=== PATIENT | female | born 1995 | race Caucasian/White ===

== ENCOUNTER 2017-02-16 12:17 | Emergency (ER) | payer SELFPAY ==
[~2017-02-16] VITALS: Ht 162.6 cm; Wt 59.0 kg
[2017-02-16] MEDS ORDERED: IV NORMAL SALINE 1000ML BAG 1,000 ML IV SCH (12:43)
[2017-02-16] MEDS ORDERED: MORPHINE SULFATE 2 MG/ML DISP.SYRIN. IV/SQ PRN (12:45)
[2017-02-16] MEDS ORDERED: ONDANSETRON PF 4 MG/2 ML VIAL. IV ONE (12:45)
--- NOTE | 2017-02-16 12:47 | PHYS DOC ---
Adult General Chief Complaint Chief Complaint: ABDOMINAL PAIN HPI HPI Patient is a 21 year old female who presents with hematuria and lower abdominal pain. She states it started in the middle night when she started noticing left lower pelvic pain and now she complains of right lower pelvic pain. She states she tries to urinate eventually sees blood. She states she could be on her period. She states her periods are very irregular. She is a . She denies any nausea vomiting or constipation or diarrhea. Review of Systems Review of Systems Constitutional: Denies fever or chills [] Eyes: Denies change in visual acuity, redness, or eye pain [] HENT: Denies nasal congestion or sore throat [] Respiratory: Denies cough or shortness of breath [] Cardiovascular: No additional information not addressed in HPI [] GI: Positive for abdominal pain, nausea, vomiting, bloody stools or diarrhea [] : Denies dysuria, positive for hematuria [] Musculoskeletal: Denies back pain or joint pain [] Integument: Denies rash or skin lesions [] Neurologic: Denies headache, focal weakness or sensory changes [] Endocrine: Denies polyuria or polydipsia [] All other systems were reviewed and found to be within normal limits, except as documented in this note. Current Medications Current Medications Current Medications Medications (Trade) Dose Ordered Sig/Lukas Start Time Stop Time Status Last Admin Dose Admin Morphine Sulfate 2 mg PRN Q15MIN PRN 02/16/17 12:45 02/17/17 12:44 02/16/17 13:16 2 MG Ondansetron HCl (Zofran) 4 mg 1X ONCE 02/16/17 12:45 02/16/17 13:03 DC 02/16/17 13:14 4 MG Sodium Chloride 1,000 ml @ 1,000 mls/hr Q1H 02/16/17 12:43 02/16/17 13:42 DC 02/16/17 13:13 1,000 MLS/HR Allergies Allergies Allergies Coded Allergies Type Severity Reaction Last Updated Verified No Known Drug Allergies 02/16/17 No Physical Exam Physical Exam Constitutional: Well developed, well nourished, no acute distress, non-toxic appearance. [] HENT: Normocephalic, atraumatic, bilateral external ears normal, oropharynx moist, no oral exudates, nose normal. [] Eyes: PERRLA, EOMI, conjunctiva normal, no discharge. [] Neck: Normal range of motion, no tenderness, supple, no stridor. [] Cardiovascular:Heart rate regular rhythm, no murmur [] Lungs & Thorax: Bilateral breath sounds clear to auscultation [] Abdomen genital exam: Bowel sounds normal, soft, no tenderness, no masses, no pulsatile masses, normal external genitalia, no cervical motion tenderness, minimal blood in the vault. Wrapper Sizer present during exam Skin: Warm, dry, no erythema, no rash. [] Back: No tenderness, no CVA tenderness. [] Extremities: No tenderness, no cyanosis, no clubbing, ROM intact, no edema. [] Neurologic: Alert and oriented X 3, normal motor function, normal sensory function, no focal deficits noted. [] Psychologic: Affect normal, judgement normal, mood normal. [] Current Patient Data Vital Signs Vital Signs Date Time Temp Pulse Resp B/P (MAP) Pulse Ox O2 Delivery O2 Flow Rate FiO2 02/16/17 13:46 61 18 128/82 (97) 99 Room Air 02/16/17 12:46 98.2 98.2 Lab Values Laboratory Tests Test 02/16/17 12:40 02/16/17 13:20 02/16/17 14:25 Urine Collection Type Unknown U cath Urine Color Red Yellow Urine Clarity Cloudy Clear Urine pH 6.0 6.5 Urine Specific [place] 1.015 1.010 Urine Protein 100 mg/dL (NEG-TRACE) Negative mg/dL (NEG-TRACE) Urine Glucose (UA) Negative mg/dL (NEG) Negative mg/dL (NEG) Urine Ketones (Stick) 15 mg/dL (NEG) Negative mg/dL (NEG) Urine Blood Large (NEG) Small (NEG) Urine Nitrite Negative (NEG) Negative (NEG) Urine Bilirubin Moderate (NEG) Negative (NEG) Urine Urobilinogen Dipstick 1.0 mg/dL (0.2 mg/dL) 1.0 mg/dL (0.2 mg/dL) Urine Leukocyte Esterase Moderate (NEG) Negative (NEG) Urine RBC Tntc /HPF (0-2) 0 /HPF (0-2) Urine WBC 20-40 /HPF (0-4) 0 /HPF (0-4) Urine Squamous Epithelial Cells Mod /LPF Few /LPF Urine Bacteria Many /HPF (0-FEW) 0 /HPF (0-FEW) Urine Mucus Mod /LPF POC Urine HCG, Qualitative Hcg negative (Negative) White Blood Count 10.2 x10^3/uL (4.0-11.0) Red Blood Count 4.64 x10^6/uL (3.50-5.40) Hemoglobin 14.7 g/dL (12.0-15.5) Hematocrit 43.0 % (36.0-47.0) Mean Corpuscular Volume 93 fL (79-100) Mean Corpuscular Hemoglobin 32 pg (25-35) Mean Corpuscular Hemoglobin Concent 34 g/dL (31-37) Red Cell Distribution Width 13.8 % (11.5-14.5) Platelet Count 200 x10^3/uL (140-400) Neutrophils (%) (Auto) 69 % (31-73) Lymphocytes (%) (Auto) 17 % (24-48) L Monocytes (%) (Auto) 9 % (0-9) Eosinophils (%) (Auto) 5 % (0-3) H Basophils (%) (Auto) 1 % (0-3) Neutrophils # (Auto) 7.0 x10^3uL (1.8-7.7) Lymphocytes # (Auto) 1.7 x10^3/uL (1.0-4.8) Monocytes # (Auto) 0.9 x10^3/uL (0.0-1.1) Eosinophils # (Auto) 0.6 x10^3/uL (0.0-0.7) Basophils # (Auto) 0.1 x10^3/uL (0.0-0.2) Prothrombin Time 14.4 SEC (11.7-14.0) H Prothrombin Time INR 1.2 (0.8-1.1) H PTT 32 SEC (24-38) Sodium Level 142 mmol/L (136-145) Potassium Level 4.0 mmol/L (3.5-5.1) Chloride Level 105 mmol/L (98-107) Carbon Dioxide Level 27 mmol/L (21-32) Anion Gap 10 (6-14) Blood Urea Nitrogen 10 mg/dL (7-20) Creatinine 0.7 mg/dL (0.6-1.0) Estimated GFR (Cockcroft-Gault) 105.6 Glucose Level 84 mg/dL (70-99) Calcium Level 8.5 mg/dL (8.5-10.1) Serum Test, Qualitative Negative (NEG) Laboratory Tests 02/16/17 13:20 Laboratory Tests 02/16/17 13:20 Microbiology 02/16/17 Wet Prep - Final, Complete Microbiology 02/16/17 Wet Prep - Final, Complete EKG EKG [] Radiology/Procedures Radiology/Procedures [facility] [address] [place] [address] IMAGING REPORT Signed PATIENT: FRANK RICH ACCOUNT: [id number] : 1995 LOCATION: ER AGE: 21 SEX: F EXAM STATUS: REG ER ORD. PHYSICIAN: FRANK CLEMENTE MD REASON: pelvic pain PROCEDURE: PELVIS COMPLETE Indication: Pelvic pain. The uterus measures 8.1 x 5.2 x 4.4 cm. Endometrium is 2 mm in thickness. No uterine mass is detected. The right ovary measures 3.2 x 2.4 x 1.6 cm and the left ovary measures 3.0 x 2.5 x 1.6 cm. There is blood flow to both ovaries. No adnexal mass or free fluid is seen. Impression: Unremarkable pelvic ultrasound. DICTATED and SIGNED BY: LILLIAM TIJERINA MD DATE: 02/16/17 1416 CC: FRANK CLEMENTE MD; NO PCP ~ RUN DATE: 02/16/17 PAGE 1 RUN TIME: 1436 [facility] [address] [place] [address] Ryne Carey M.D., Stock [employer] PATIENT: FRANK RICH ACCT: [id number] LOC: ER U : [id number] AGE/SX: 21/F ROOM: REG : 02/16/[address]: FRANK CLEMENTE MD : 1995 BED: DIS : STATUS: REG ER TLOC: SPEC #: [id number] MARQUIS: 02/16/17 STATUS: COMP REQ #: [id number] RECD: 02/16/[address]: FRANK CLEMENTE MD SOURCE: VAGINAL ENTR: 02/16/[address] [facility] [address]: RYAN MANCERA SPDESC: ORDERED: WET PREP COMMENTS: Has specimen been collected/obtained? Y Procedure Result WET PREP Final YEAST NONE SEEN TRICHOMONAS NONE SEEN CLUE CELLS CLUE CELLS PRESENT ALTERED INDRA ALTERED INDRA PRESENT SUGGESTIVE OF BACTERIAL VAGINOSIS WBCS FEW END OF REPORT Impressions: Bacterial vaginosis Course & Med Decision Making Course & Med Decision Making Pertinent Labs and Imaging studies reviewed. (See chart for details) Patient has bacterial vaginosis. She feels better after her results of been given to her that she is not and that she has bacterial vaginosis. She is concerned that she might have essentially transmitted infection because she has a new partner and she's heard some discussion at he has had an STD in the past. Gonorrhea chlamydia is pending at this time. She's being discharged and we will call her with results. She is agreeable to plan being discharged in stable condition with return precautions. Dragon Disclaimer Dragon Disclaimer This electronic medical record was generated, in whole or in part, using a voice recognition dictation system. Departure Departure Impression: Primary Impression: Bacterial vaginosis Disposition: HOME, SELF-CARE Condition: STABLE Referrals: NO PCP (PCP) Patient Instructions: Bacterial Vaginosis Additional Instructions: Your ultrasound of your pelvis did not show any acute abnormalities. You do have bacterial vaginosis which is not a sexually transmitted infection but does need to be treated with antibiotic for a week. Your being prescribed Flagyl they need take twice a day for the next 7 days. Do not drink any alcohol with this medicine as it can make you sick. You will need to follow-up with your OB/ [employer] regarding this. If you develop severe pain, uncontrolled nausea vomiting fevers or other concerns please return back to ER. We will call you in 3-5 days if your other tests come back positive. Scripts Metronidazole (FLAGYL) 500 Mg Tablet 1 TAB PO BID, #14 TAB Prov: FRANK CLEMENTE MD 02/16/17 FRANK CLEMENTE MD Feb 16, 2017 12:47
[2017-02-16 12:56] LABS: BILIRUBIN,URINE MODERATE (NEG); GLUCOSE,URINE NEGATIVE (NEG); NITRITE,URINE NEGATIVE (NEG); PROTEIN,URINE 100 mg/dL (NEG-TRACE)
[2017-02-16 13:05] LABS: BACTERIA,URINE MANY /HPF (0-FEW); RBC,URINE TNTC /HPF (0-2); SQUAMOUS EPITHELIAL CELL,UR MOD /LPF; WBC,URINE 20-40 /HPF (0-4)
[2017-02-16 13:29] LABS: BASO # 0.1 x10^3/uL (0.0-0.2); BASO % 1 % (0-3); EOS % 5 % (0-3); HEMOGLOBIN 14.7 g/dL (12.0-15.5); LYMPH # 1.7 x10^3/uL (1.0-4.8); LYMPH % 17 % (24-48); MEAN CORPUSCULAR HEMOGLOBIN 32 pg (25-35); MEAN CORPUSCULAR HGB CONC 34 g/dL (31-37); MEAN CORPUSCULAR VOLUME 93 fL (79-100); MONO % 9 % (0-9); NEUT % 69 % (31-73); PLATELET COUNT 200 x10^3/uL (140-400); RED BLOOD COUNT 4.64 x10^6/uL (3.50-5.40); RED CELL DISTRIBUTION WIDTH 13.8 % (11.5-14.5); WHITE BLOOD COUNT 10.2 x10^3/uL (4.0-11.0)
[2017-02-16 13:40] LABS: INR 1.2 (0.8-1.1); PROTHROMBIN TIME PATIENT 14.4 SEC (11.7-14.0)
[2017-02-16 13:41] LABS: CALCIUM 8.5 mg/dL (8.5-10.1); CREATININE 0.7 mg/dL (0.6-1.0); GFR 105.6
[2017-02-16 13:43] LABS: NEG OBC SER NEG; POS OBC SER POS
--- NOTE | 2017-02-16 14:21 | RAD ---
Indication: Pelvic pain. The uterus measures 8.1 x 5.2 x 4.4 cm. Endometrium is 2 mm in thickness. No uterine mass is detected. The right ovary measures 3.2 x 2.4 x 1.6 cm and the left ovary measures 3.0 x 2.5 x 1.6 cm. There is blood flow to both ovaries. No adnexal mass or free fluid is seen. Impression: Unremarkable pelvic ultrasound.
[2017-02-16 14:51] LABS: BILIRUBIN,URINE NEGATIVE (NEG); GLUCOSE,URINE NEGATIVE (NEG); NITRITE,URINE NEGATIVE (NEG); PH,URINE 6.5; PROTEIN,URINE NEGATIVE (NEG-TRACE)
[2017-02-16 15:01] LABS: BACTERIA,URINE 0 /HPF (0-FEW); RBC,URINE 0 /HPF (0-2); SQUAMOUS EPITHELIAL CELL,UR FEW /LPF; WBC,URINE 0 /HPF (0-4)
[2017-02-16] MEDS ORDERED: METR500T PO (15:54)
[2017-02-16 16:10] VITALS: BP 119/64
== END 2017-02-16 16:14 | disposition home or self-care (01) ==
LOC: ER 12:17
DX: N76.0 Acute vaginitis (principal); B96.89 Other specified bacterial agents as the cause of diseases classified elsewhere
CPT/HCPCS: 36415; 76856; 80048; 81001; 81025; 84703; 85025; 85610; 85730; 87086; 87491; 87591; 96361; 96374; 96375; 99285; J2270; J2405; J7030; Q0111

== ENCOUNTER 2019-12-13 09:31 | Emergency (ER) | payer SELFPAY ==
[~2019-12-13] VITALS: Ht 162.6 cm; Wt 61.0 kg
[~2019-12-13 09:31] MED LIST: METR500T PO
[2019-12-13 09:35] VITALS: BP 166/105
[2019-12-13] MEDS ORDERED: BUPIVACAINE MPF 0.5% 30 ML VIAL. INJ ONE (09:45)
--- NOTE | 2019-12-13 09:45 | PHYS DOC ---
Past Medical History Past Medical History: No Pertinent History Past Surgical History: No Surgical History Smoking Status: Current Every Day Smoker Alcohol Use: Occasionally Drug Use: None General Adult EDM: Chief Complaint: DENTAL PROBLEM HPI: HPI: Healthy 24-year-old female who presents for evaluation of dental pain. She reports a few days of left lower dental pain, at the site of a dental crown. No fever, chills, N/V. Mouthwash without efficacy. Review of Systems: Review of Systems: Gen: No fever, chills. Eyes: No blurred vision, diplopia. ENT: No nasal congestion, sore throat. Reports dental pain. CV: No CP. Resp. No SOB, cough. GI: No abd pain, N/V. Neuro: No FLOREZ, dizziness, weakness. MSK: No myalgia, arthralgia. Skin: No acute rash or lesion. Heart Score: Risk Factors: Risk Factors: DM, Current or recent (<one month) smoker, HTN, HLP, family history of CAD, obesity. Risk Scores: Score 0 - 3: 2.5% MACE over next 6 weeks - Discharge Home Score 4 - 6: 20.3% MACE over next 6 weeks - Admit for Clinical Observation Score 7 - 10: 72.7% MACE over next 6 weeks - Early Invasive Strategies Allergies: Allergies: Allergies Coded Allergies Type Severity Reaction Last Updated Verified No Known Drug Allergies 02/16/17 No Physical Exam: PE: Gen: NAD. Well nourished. Head: NC/AT. Eyes: No scleral icterus. No conjunctival injection. ENT: MMM. Posterior OP clear. Point to left lower molar crown as site of pain, no periapical abscess noted. No intraoral lesions. Neck: Supple. NT. CV: RRR. Peripheral pulses intact. Resp: CTAB. MSK: No peripheral cyanosis. No edema. Neuro: Awake and alert. Skin. Warm. Dry. Psych: Appropriate mood & affect. EKG: EKG: [] Radiology/Procedures: Radiology/Procedures: [] Course & Med Decision Making: Course & Med Decision Making Pertinent Labs and Imaging studies reviewed. (See chart for details) In summary, 24F p/w left lower dental pain, now s/p left inferior alveolar block with 2 mL of bupivacaine 0.5%. No abscess noted. Will DC home with Rx amox. Outpatient dental F/U. Return precautions given. Soren Disclaimer: Soren Disclaimer: This electronic medical record was generated, in whole or in part, using a voice recognition dictation system. Departure Departure Impression: Primary Impression: Pain, dental Disposition: 01 DC HOME SELF CARE/HOMELESS Condition: STABLE Referrals: NO PCP (PCP) Patient Instructions: Dental Pain, [id number] Additional Instructions: Please follow up with a dentist in the next 1-2 days. Scripts Hydrocodone/Apap 5-325 (NORCO 5-325 TABLET) 1 Each Tablet 1 TAB PO Q8H PRN for PAIN, #10 TAB 0 Refills Prov: LE,KADEEM H DO 12/13/19 Amoxicillin (AMOXICILLIN) 500 Mg Capsule 1 CAP PO Q12H for infection, #14 CAP Prov: LE,KADEEM H DO 12/13/19 LE,KADEEM H DO Dec 13, 2019 09:45
[2019-12-13] MEDS ORDERED: HYDR-3164 PO (10:12)
[2019-12-13] MEDS ORDERED: AMOX500C PO (10:12)
== END 2019-12-13 10:22 | disposition home or self-care (01) ==
LOC: ER 09:31
DX: K08.89 Other specified disorders of teeth and supporting structures (principal); F17.200 Nicotine dependence, unspecified, uncomplicated
CPT/HCPCS: 64400; 99284; J3490